=== PATIENT | male | born 1995 | race African-American/Black ===

== ENCOUNTER 2023-02-22 19:18 | Emergency (ER) | payer OTHER ==
[2023-02-22 19:24] VITALS: BMI 26.6
[2023-02-22] MEDS ORDERED: predniSONE 20 MG TABLET (UD) PO ONE (22:10)
[2023-02-22] MEDS ORDERED: predniSONE 20 MG TABLET (UD) ONE (22:21)
[2023-02-22 22:30] VITALS: BP 113/68; PULSE 72; RESP 19; TEMP 97.9
== END 2023-02-22 22:29 | disposition home or self-care (01) ==
LOC: JERFT 19:18
DX: R53.1 Weakness (principal); G51.0 Bell's palsy; J01.90 Acute sinusitis, unspecified
CPT/HCPCS: 70450-TC; 99284-25

== ENCOUNTER 2024-03-09 22:01 | Emergency (ER) | payer OTHER ==
[2024-03-09 22:06] VITALS: BP 134/73; PULSE 65; RESP 18; TEMP 98.3; BMI 26.6
== END 2024-03-09 23:24 | disposition home or self-care (01) ==
LOC: JER 22:01
DX: K13.0 Diseases of lips (principal); K08.89 Other specified disorders of teeth and supporting structures
CPT/HCPCS: 99283-25